=== PATIENT | male | born 1975 | race Caucasian/White ===

== ENCOUNTER 2016-12-13 18:06 | Emergency (ER) | payer OTHER ==
[2016-12-13] MEDS ORDERED: LORTAB 10-3251 EACH PO (18:16)
[2016-12-13] MEDS ORDERED: LIORESAL10 MG PO (18:16)
[2016-12-13] MEDS ORDERED: TOPAMAX PO (18:16)
[2016-12-13] MEDS ORDERED: ALTACE10 M2 PO (18:18)
[2016-12-13] MEDS ORDERED: METFORMIN HCL500 M3 PO (18:18)
[2016-12-13] MEDS ORDERED: AMARYL PO (18:18)
[2016-12-13] MEDS ORDERED: LANTUS100 U/ML SUBQ (18:19)
[2016-12-13] MEDS ORDERED: LYRICA50 MG PO (18:19)
[2016-12-13] MEDS ORDERED: HUMULIN R100 UNIT/1 SUBQ (18:20)
[2016-12-13] MEDS ORDERED: MOBIC15 MG PO (18:20)
== END 2016-12-13 19:17 | disposition home or self-care (01) ==
LOC: SED 18:06
DX: M54.5 Low back pain (principal); G89.29 Other chronic pain; Z88.8 Allergy status to other drugs, medicaments and biological substances
CPT/HCPCS: 96372; 99283; J1170; J1885